=== PATIENT | male | born 1975 ===

== ENCOUNTER 2022-10-31 08:43 | Day surgery (SDC) | payer OTHER ==
[~2022-10-31] VITALS: Ht 182.9 cm; Wt 83.5 kg
[2022-10-31] MEDS ORDERED: MIRALAX17 GM PO (13:50)
[2022-10-31] MEDS ORDERED: TRAMADOL HCL50 MG PO (13:50)
[2022-10-31] MEDS ORDERED: TYLENOL ARTHRI650 MG PO (13:50)
[2022-10-31] MEDS ORDERED: KETO10TA2 PO (13:50)
== END 2022-10-31 17:30 | disposition home or self-care (01) ==
LOC: CIR.AMB 08:43
PROVIDERS: ATTEND Surgery
DX: K40.90 Unilateral inguinal hernia, without obstruction or gangrene, not specified as recurrent (principal); Z20.822 Contact with and (suspected) exposure to COVID-19; F17.210 Nicotine dependence, cigarettes, uncomplicated
CPT/HCPCS: 49650; C1781